=== PATIENT | male | born 2000 | race Two or more races ===

== ENCOUNTER → 2024-04-17 | Outpatient (CLI) | payer MEDICAID, SELFPAY ==
--- NOTE | 2024-04-17 13:30 | ECHO_ITS ---
Transthoracic Echo Report Ht (in): 67 Wt (lb): 230 Exam Location: Echo Lab Status: Preadmit [employer] Developer: Eliza Chin Indications: Procedure Performed: BP: / HR: Rhythm: Sinus Technical Quality: Fair MEASUREMENTS (Male / Female) Normal Values 2D ECHO LV Diastolic Diameter PLAX 5.7 cm 4.2 - 5.9 / 3.9 - 5.3 cm LV Systolic Diameter PLAX 4.6 cm IVS Diastolic Thickness 0.9 cm 0.6 - 1.0 / 0.6 - 0.9 cm LVPW Diastolic Thickness 1.0 cm 0.6 - 1.0 / 0.6 - 0.9 cm LV Relative Wall Thickness 0.3 LVOT Diameter 2.0 cm LA Volume Index 23.2 cm?/m? 16 - 28 cm?/m? Ascending Aorta Diameter 2.5 cm M-MODE Aortic Root Diameter MM 3.1 cm LA Systolic Diameter MM 3.6 cm LA Ao Ratio MM 1.2 MV E Point Septal Separation 2.2 cm AV Cusp Separation MM 2.0 cm DOPPLER AV Peak Velocity 132.0 cm/s AV Peak Gradient 7.0 mmHg AV Mean Gradient 4.0 mmHg AV Velocity Time Integral 26.6 cm LVOT Peak Velocity 83.5 cm/s LVOT Peak Gradient 2.8 mmHg LVOT Velocity Time Integral 16.0 cm AV Area Cont Eq vti 1.9 cm? AV Area Cont Eq pk 2.0 cm? MV Peak Velocity 78.9 cm/s MV Peak Gradient 2.5 mmHg MV Mean Velocity 56.0 cm/s MV Mean Gradient 1.0 mmHg MV Area PHT 4.2 cm? Mitral E Point Velocity 67.9 cm/s Mitral A Point Velocity 55.3 cm/s Mitral E to A Ratio 1.2 LV E' Lateral Velocity 8.6 cm/s Mitral E to LV E' Lateral Ratio 7.9 LV E' Septal Velocity 6.1 cm/s Mitral E to LV E' Septal Ratio 11.1 TR Peak Velocity 215.5 cm/s TR Peak Gradient 18.6 mmHg FINDINGS Left Ventricle Dilated Left ventricle. Moderate systolic dysfunction. Moderate global hypokinesis The ejection frac tion is visually estimated at 35-40%. Right Ventricle The right ventricle is normal in size and systolic function. The estimated right ventricular systoli c pressure, 32mmHg. RAP 5. Left Atrium The left atrium is normal by two-dimensional, color flow and Doppler imaging with no structural abnormalities, no thrombus formation present. Right Atrium The right atrium is normal by two-dimensional imaging, color flow and Doppler imaging with no struct ural abnormalities, no thrombus formation present. Atrial Septum The interatrial septum appears normal with no evidence of a shunt. Aorta The aorta is normal by two-dimensional, color flow and Doppler interrogation. Mitral Valve The mitral valve is normal by two-dimensional, color flow and Doppler interrogation. There is mild mitral valve regurgitation. Aortic Valve The aortic valve is trileaflet and normal by two-dimensional, color flow and Doppler interrogation. There is trace aortic valve regurgitation. Tricuspid Valve The tricuspid valve is normal by two-dimensional, color flow and Doppler interrogation. There is mil d tricuspid valve regurgitation. Pulmonic Valve There is no significant pulmonic valve regurgitation. Vessels The pulmonary artery appears normal. The inferior vena cava pulmonary and hepatic veins appear clarisa l. Pericardium The pericardium is normal by two-dimensional imaging. There is no significant pericardial effusion. CONCLUSIONS Indication: Cardiac murmur Dilated LV.. Severe systolic dysfunction. Estimated EF 30-35%. Grade 2 diastolic dysfunction Moderate hypokinesis of the basal segments and severe hypokinesis of the apical segments noted in th e four-chamber as well as the 2 chamber view. Normal RV size and low clarisa RV function. Mild MR and TR TR. Trace AI. Tereso Blanchard (Electronically Signed) Final Date: 18 April 2024 06:57
== END | disposition home or self-care (01) ==
LOC: SDIM 04-23 08:16
PROVIDERS: PCP Family Medicine; Referring Provider Family Medicine; Visit Provider Family Medicine
DX: I08.3 Combined rheumatic disorders of mitral, aortic and tricuspid valves (principal)
CPT/HCPCS: 93306